=== PATIENT | female | born 1955 | race Caucasian/White ===

== ENCOUNTER 2017-07-09 21:59 | Inpatient (IN) | payer BC ==
[2017-07-09] MEDS ORDERED: Sodium Chloride 0.9% 1,000 ML IV ONE ×2 (22:24→22:59)
[2017-07-09] MEDS ORDERED: Sodium Chloride 0.9% 10 ML Syringe FLUSH PRN (22:24)
[2017-07-09] MEDS ORDERED: Sodium Chloride 0.9% 2.5 ML Syringe FLUSH PRN (22:24)
[2017-07-09] MEDS ORDERED: Ondansetron 4 MG/2 ML SDV IVPUSH ONE (22:24)
--- NOTE | 2017-07-09 22:30 | EDM.PDOC ---
ED HPI GENERAL MEDICAL PROBLEM - General Chief Complaint: Diabetic Complaint Stated Complaint: FLU LIKE SYMPTOMS Time Seen by Provider: 07/09/17 22:17 - History of Present Illness INITIAL COMMENTS - FREE TEXT/NARRATIVE: HISTORY AND PHYSICAL: History of present illness: The patient is a 61-year-old female with a history of hypertension hypothyroidism and type 2 diabetes who uses an insulin pump and presents with a with an almost 24 hour history of intractable vomiting and now confusion and altered mental status for the last one hour. said that they had a normal day yesterday and that very much all day she has been vomiting and unable to take sips of water. The vomiting has not been black or bloody. She has not complained of abdominal pain but has complained of a headache and neck pain but no back or flank pain. The patient has insulin pump and the sugars have been elevated today. The patient's tells me that a few years ago she was in DKA and this is similar presentation where she has vomiting and then altered mental status. The patient has no cardiac history that he is aware of and no pulmonary history and denies chest pain or shortness of breath to me in the ER. She denies abdominal pain as well. The patient has not had any trauma or falls per the . Patient has insulin pump on her abdomen. The tells me she has not had diarrhea or urinary complaints and has had no recent fevers chills or upper respiratory infection. Review of systems: As per history of present illness and below otherwise all systems reviewed and negative. Past medical history: As per history of present illness and as reviewed below otherwise noncontributory. Surgical history: As per history of present illness and as reviewed below otherwise noncontributory. Social history: No reported history of drug or alcohol abuse. Family history: As per history of present illness and as reviewed below otherwise noncontributory. Physical exam: General: Well-developed overweight female who is interactive and follows commands but giggles inappropriately and when you ask her to do a command she will continue to do it even though the patellar to stop. There is ketone smell on her breath which is very strong. Rectal temp is 98.8 HEENT: Atraumatic, normocephalic, pupils reactive, negative for conjunctival pallor or scleral icterus, mucous membranes dry, throat clear, neck supple, nontender, trachea midline. Lungs: Clear to auscultation, breath sounds equal bilaterally, chest nontender. No worker breathing stridor or sensory muscle use and no wheezing Heart: S1S2, regular rhythm but tachycardic rate, negative for clicks, rubs, or JVD. Abdomen: Soft, nondistended, nontender. Negative for masses or hepatosplenomegaly. NABS Pelvis: Stable nontender. Genitourinary: Deferred. Rectal: Deferred. Extremities: Atraumatic, negative for cords or calf pain. Neurovascular unremarkable. Full range of motion without defects or deficits Neuro: Awake, alert to person and will follow simple commands but is confused. There is no focality to her exam and she is moving all extremities. There is no facial droop Cranial nerves II through XII unremarkable. . Motor and sensory unremarkable throughout. Exam nonfocal. Skin: Normal turgor no evidence of any rashes or lesions and no diaphoresis Diagnostics: EKG CBC CMP amylase lipase troponin TSH ABG serum ketones UA CT scan of the head chest x-ray Therapeutics: IV O2 monitor IV fluids Zofran insulin subcutaneous and drip, I directed nursing to shut off the patient's own insulin pump sodium bicarbonate 2312: Case was discussed with Dr. Waqar Salgado our hospitalist and he recommends giving an amp of sodium bicarbonate as well as the fluid resuscitation and the insulin drip. He is aware of my concerns about the patient's confusional state she is maintaining her airway and her oxygen saturation and he will come in to see the patient and admit to the ICU. As been at bedside is also aware of this conversation. 2340: Dr. Salgado is here at bedside interpreting the and examining the patient. All labs are back and disposition to the ICU will be facilitated. Patient still is very confused but moving all extremities and not exhibiting any weakness or lateralizing signs. Critical care time excluding procedures:35min Impression: Diabetic ketoacidosis, intractable vomiting, confusional state/altered mental status Definitive disposition and diagnosis as appropriate pending reevaluation and review of above. - Related Data Allergies Allergy/AdvReac Type Severity Reaction Status Date / Time Penicillins Allergy Rash Verified 12/08/15 11:27 Home Meds: Home Meds Hydrochlorothiazide 1 tab PO PCDINNER 12/08/15 [History] Insulin Pump Controller [Snap Insulin Pump Controller] 0 unit SQ ASDIRECTED 09/15 [History] Levothyroxine Sodium [Levo-T] 1 tab PO ACBREAKFAST 12/08/15 [History] Losartan [Cozaar] 1 tab PO BEDTIME 12/08/15 [History] Omeprazole Magnesium [Prilosec Otc] 1 tab PO DAILY 12/08/15 [History] Potassium Bicarbonate/Cit Ac [Effer-K] 1 tab PO DAILY 12/08/15 [History] Past Medical History HEENT History: Reports: None Cardiovascular History: Reports: Hypertension Other Respiratory History: REports 30 yr history of smoking cigarettes, QUIT 2 years ago Gastrointestinal History: Reports: GERD Genitourinary History: Reports: None Musculoskeletal History: Reports: Fracture Other Musculoskeletal History: hx: fracture Right foot & fractured ankle Neurological History: Reports: None Psychiatric History: Reports: None Endocrine/Metabolic History: Reports: Diabetes, Type I, Obesity/BMI 30+ Hematologic History: Reports: None - Past Surgical History HEENT Surgical History: Reports: Oral Surgery Musculoskeletal Surgical History: Reports: Other (See Below) - History Comment History Comment: etoh "3-4x a week" ED ROS GENERAL - Review of Systems Review Of Systems: ROS reveals no pertinent complaints other than HPI. ED EXAM GENERAL NO PERIP PULSE - Physical Exam Exam: See Below (See dictation) Course - Vital Signs Last Recorded V/S: Last Vital Signs Temp 37.2 C 07/09/17 21:59 Pulse 136 H 07/09/17 21:59 Resp 28 H 07/09/17 21:59 BP 140/100 H 07/09/17 21:59 Pulse Ox 96 07/09/17 21:59 - Orders/Labs/Meds Orders: Active Orders 24 hr Category Date Time Status Patient Status [ADT] Stat ADT 07/09/17 23:40 Active Blood Glucose Check, Bedside [RC] ONETIME Care 07/09/17 22:22 Active Cardiac Monitoring [RC] . DIRECTED Care 07/09/17 22:22 Active Communication Order [RC] STAT Care 07/09/17 22:24 Active EKG Documentation Completion [RC] STAT Care 07/09/17 22:22 Active Oxygen Therapy, ED [RC] ASDIRECTED Care 07/09/17 22:22 Active Pulse Oximetry [RC] ASDIRECTED Care 07/09/17 22:22 Active Chest 1V Frontal [CR] Stat Exams 07/09/17 22:24 Taken Head wo Cont [CT] Stat Exams 07/09/17 22:23 Taken UA W/MICROSCOPIC [URIN] Stat Lab 07/09/17 23:10 Ordered Insulin Regular, Human [NovoLIN R] 100 unit Med 07/09/17 23:00 Active Sodium Chloride 0.9% [Normal Saline] 99 ml IV TITRATE Sodium Chloride 0.9% [Normal Saline] 1,000 ml Med 07/09/17 22:59 Active IV STAT Sodium Chloride 0.9% [Saline Flush] Med 07/09/17 22:24 Active 10 ml FLUSH ASDIRECTED PRN Sodium Chloride 0.9% [Saline Flush] Med 07/09/17 22:24 Active 2.5 ml FLUSH ASDIRECTED PRN Saline Lock Insert [OM.PC] Stat Oth 07/09/17 22:22 Ordered Medication Orders Insulin Human Regular 100 unit (/ Sodium Chloride) 100 mls @ 9.97 mls/hr IV TITRATE RAFITA; Protocol Last Admin: 07/09/17 23:28 Dose: 0.1 unit/kg/hr, 9.97 mls/hr Sodium Chloride (Normal Saline) 1,000 mls @ 999 mls/hr IV STAT ONE Stop: 07/09/17 23:59 Sodium Chloride (Saline Flush) 10 ml FLUSH ASDIRECTED PRN PRN Reason: Keep Vein Open Last Admin: 07/09/17 22:47 Dose: 10 ml Sodium Chloride (Saline Flush) 2.5 ml FLUSH ASDIRECTED PRN PRN Reason: Keep Vein Open Last Admin: 07/09/17 22:47 Dose: 2.5 ml Labs: Laboratory Tests 07/09/17 07/09/17 07/09/17 Range/Units 22:21 22:21 22:21 WBC 17.02 H (4.0-11.0) K/uL RBC 4.12 L (4.30-5.90) M/uL Hgb 13.0 (12.0-16.0) g/dL Hct 41.4 (36.0-46.0) % MCV 100.5 H (80.0-98.0) fL MCH 31.6 (27.0-32.0) pg MCHC 31.4 (31.0-37.0) g/dL RDW Std Deviation 52.2 (28.0-62.0) fl RDW Coeff of Farheen 14 (11.0-15.0) % Plt Count 357 (150-400) K/uL MPV 11.80 (7.40-12.00) fL Add Manual Diff YES Neutrophils % (Manual) 82 H (48.0-80.0) % Lymphocytes % (Manual) 8 L (16.0-40.0) % Monocytes % (Manual) 8 (0.0-15.0) % Eosinophils % (Manual) 2 (0.0-7.0) % Nucleated RBC % 0.0 /100WBC Absolute Seg Neuts 14.0 H (1.4-5.7) Lymphocytes # (Manual) 1.4 (0.6-2.4) Monocytes # (Manual) 1.4 H (0.0-0.8) Eosinophils # (Manual) 0.3 (0.0-0.7) Nucleated RBCs # 0 K/uL ABG pH (7.35-7.45) ABG pCO2 (35-45) mmHG ABG pO2 (75-100) mmHG ABG HCO3 (22-26) mEq/L ABG Total CO2 ABG Base Excess (-2.0-2.0) Sodium 129 L (136-145) mmol/L Potassium 4.9 (3.5-5.1) mmol/L Chloride 83 L (98-107) mmol/L Carbon Dioxide 9.4 L (21.0-32.0) mmol/L BUN 41 H (7.0-18.0) mg/dL Creatinine 2.2 H (0.6-1.0) mg/dL Est Cr Clr Drug Dosing TNP Estimated GFR (MDRD) 22.8 ml/min Glucose 822 H* (74-106) mg/dL Calcium 10.5 H (8.5-10.1) mg/dL Total Bilirubin 0.8 (0.2-1.0) mg/dL AST 16 (15-37) IU/L ALT 16 (14-63) IU/L Alkaline Phosphatase 52 (46-116) U/L Troponin I < 0.050 (0.000-0.056) ng/mL Total Protein 7.7 (6.4-8.2) g/dL Albumin 4.0 (3.4-5.0) g/dL Globulin 3.7 H (2.0-3.5) g/dL Albumin/Globulin Ratio 1.1 L (1.3-2.8) Amylase 20 L (25-115) U/L Lipase 140 (73-393) U/L TSH 3rd Generation 0.69 (0.36-3.74) uIU/mL Urine Color Urine Appearance Urine pH (5.0-8.0) Ur Specific Dustin (1.001-1.035) Urine Protein (NEGATIVE) mg/dL Urine Glucose (UA) (NEGATIVE) mg/dL Urine Ketones (NEGATIVE) mg/dL Urine Occult Blood (NEGATIVE) Urine Nitrite (NEGATIVE) Urine Bilirubin (NEGATIVE) Urine Urobilinogen (<2.0) EU/dL Ur Leukocyte Esterase (NEGATIVE) Urine RBC (0-2/HPF) Urine WBC (0-5/HPF) Ur Epithelial Cells (NONE-FEW) Urine Bacteria (NEGATIVE) Ketones SMALL H (NEG) 07/09/17 07/09/17 Range/Units 22:40 23:10 WBC (4.0-11.0) K/uL RBC (4.30-5.90) M/uL Hgb (12.0-16.0) g/dL Hct (36.0-46.0) % MCV (80.0-98.0) fL MCH (27.0-32.0) pg MCHC (31.0-37.0) g/dL RDW Std Deviation (28.0-62.0) fl RDW Coeff of Farheen (11.0-15.0) % Plt Count (150-400) K/uL MPV (7.40-12.00) fL Add Manual Diff Neutrophils % (Manual) (48.0-80.0) % Lymphocytes % (Manual) (16.0-40.0) % Monocytes % (Manual) (0.0-15.0) % Eosinophils % (Manual) (0.0-7.0) % Nucleated RBC % /100WBC Absolute Seg Neuts (1.4-5.7) Lymphocytes # (Manual) (0.6-2.4) Monocytes # (Manual) (0.0-0.8) Eosinophils # (Manual) (0.0-0.7) Nucleated RBCs # K/uL ABG pH 7.100 L* (7.35-7.45) ABG pCO2 22 L (35-45) mmHG ABG pO2 58 L (75-100) mmHG ABG HCO3 7 L (22-26) mEq/L ABG Total CO2 6.8 ABG Base Excess -21.1 L (-2.0-2.0) Sodium (136-145) mmol/L Potassium (3.5-5.1) mmol/L Chloride (98-107) mmol/L Carbon Dioxide (21.0-32.0) mmol/L BUN (7.0-18.0) mg/dL Creatinine (0.6-1.0) mg/dL Est Cr Clr Drug Dosing Estimated GFR (MDRD) ml/min Glucose (74-106) mg/dL Calcium (8.5-10.1) mg/dL Total Bilirubin (0.2-1.0) mg/dL AST (15-37) IU/L ALT (14-63) IU/L Alkaline Phosphatase (46-116) U/L Troponin I (0.000-0.056) ng/mL Total Protein (6.4-8.2) g/dL Albumin (3.4-5.0) g/dL Globulin (2.0-3.5) g/dL Albumin/Globulin Ratio (1.3-2.8) Amylase (25-115) U/L Lipase (73-393) U/L TSH 3rd Generation (0.36-3.74) uIU/mL Urine Color YELLOW Urine Appearance CLEAR Urine pH 5.5 (5.0-8.0) Ur Specific Dustin 1.025 (1.001-1.035) Urine Protein NEGATIVE (NEGATIVE) mg/dL Urine Glucose (UA) >=1000 (NEGATIVE) mg/dL Urine Ketones 40 H (NEGATIVE) mg/dL Urine Occult Blood NEGATIVE (NEGATIVE) Urine Nitrite NEGATIVE (NEGATIVE) Urine Bilirubin NEGATIVE (NEGATIVE) Urine Urobilinogen 0.2 (<2.0) EU/dL Ur Leukocyte Esterase NEGATIVE (NEGATIVE) Urine RBC 0-1 (0-2/HPF) Urine WBC 0-1 (0-5/HPF) Ur Epithelial Cells RARE (NONE-FEW) Urine Bacteria RARE (NEGATIVE) Ketones (NEG) Meds: Medications Generic Name Dose Route Start Last Admin Trade Name Freq PRN Reason Stop Dose Admin Insulin Human Regular 100 unit 100 mls @ 9.97 mls/hr 07/09/17 23:00 07/09/17 23:28 / Sodium Chloride IV 0.1 unit/kg/hr TITRATE RAFITA 9.97 mls/hr Administration Protocol 0.1 UNIT/KG/HR Sodium Chloride 1,000 mls @ 999 mls/hr 07/09/17 22:59 Normal Saline IV 07/09/17 23:59 STAT ONE Sodium Chloride 10 ml 07/09/17 22:24 07/09/17 22:47 Saline Flush FLUSH 10 ml ASDIRECTED PRN Administration Keep Vein Open Sodium Chloride 2.5 ml 07/09/17 22:24 07/09/17 22:47 Saline Flush FLUSH 2.5 ml ASDIRECTED PRN Administration Keep Vein Open Discontinued Medications Generic Name Dose Route Start Last Admin Trade Name Freq PRN Reason Stop Dose Admin Sodium Chloride 1,000 mls @ 999 mls/hr 07/09/17 22:24 07/09/17 22:47 Normal Saline IV 07/09/17 23:24 999 mls/hr STAT ONE Administration Insulin Human Regular 15 unit 07/09/17 22:43 07/09/17 22:52 Novolin R SUBCUT 07/09/17 22:44 15 units ONETIME ONE Administration Protocol Ondansetron HCl 4 mg 07/09/17 22:24 07/09/17 22:47 Zofran IVPUSH 07/09/17 22:25 4 mg ONETIME ONE Administration Sodium Bicarbonate 50 meq 07/09/17 23:16 07/09/17 23:26 Sodium Bicarbonate 8.4% IVPUSH 07/09/17 23:17 50 meq ONETIME ONE Administration Departure - Departure Time of Disposition: 23:43 Disposition: Admitted As Inpatient 67 Condition: Fair Clinical Impression: DKA (diabetic ketoacidosis) Qualifiers: Diabetes mellitus type: type 2 Diabetes mellitus complication detail: without coma Qualified Code(s): E11.10 - Type 2 diabetes mellitus with ketoacidosis without coma - Discharge Information Referrals: PCP,None [Primary Care Provider] - Forms: ED Department Discharge - My Orders Last 24 Hours: My Active Orders 07/09/17 22:22 Blood Glucose Check, Bedside [RC] ONETIME Cardiac Monitoring [RC] . DIRECTED EKG Documentation Completion [RC] STAT Oxygen Therapy, ED [RC] ASDIRECTED Pulse Oximetry [RC] ASDIRECTED Saline Lock Insert [OM.PC] Stat 07/09/17 22:23 Head wo Cont [CT] Stat 07/09/17 22:24 Communication Order [RC] STAT Chest 1V Frontal [CR] Stat Sodium Chloride 0.9% [Saline Flush] 10 ml FLUSH ASDIRECTED PRN Sodium Chloride 0.9% [Saline Flush] 2.5 ml FLUSH ASDIRECTED PRN 07/09/17 22:59 Sodium Chloride 0.9% [Normal Saline] 1,000 ml IV STAT 07/09/17 23:00 Insulin Regular, Human [NovoLIN R] 100 unit Sodium Chloride 0.9% [Normal Saline] 99 ml IV TITRATE 07/09/17 23:10 UA W/MICROSCOPIC [URIN] Stat 07/09/17 23:40 Patient Status [ADT] Stat - Assessment/Plan Last 24 Hours: My Active Orders 07/09/17 22:22 Blood Glucose Check, Bedside [RC] ONETIME Cardiac Monitoring [RC] . DIRECTED EKG Documentation Completion [RC] STAT Oxygen Therapy, ED [RC] ASDIRECTED Pulse Oximetry [RC] ASDIRECTED Saline Lock Insert [OM.PC] Stat 07/09/17 22:23 Head wo Cont [CT] Stat 07/09/17 22:24 Communication Order [RC] STAT Chest 1V Frontal [CR] Stat Sodium Chloride 0.9% [Saline Flush] 10 ml FLUSH ASDIRECTED PRN Sodium Chloride 0.9% [Saline Flush] 2.5 ml FLUSH ASDIRECTED PRN 07/09/17 22:59 Sodium Chloride 0.9% [Normal Saline] 1,000 ml IV STAT 07/09/17 23:00 Insulin Regular, Human [NovoLIN R] 100 unit Sodium Chloride 0.9% [Normal Saline] 99 ml IV TITRATE 07/09/17 23:10 UA W/MICROSCOPIC [URIN] Stat 07/09/17 23:40 Patient Status [ADT] Stat
[2017-07-09] MEDS ORDERED: Insulin Regular, Human 100 Units/ML 10 ML Vial SUBCUT ONE (22:43)
[2017-07-09] MEDS ORDERED: Sodium Bicarbonate 8.4% 50 MEQ/50 ML Syringe IVPUSH ONE (23:16)
[2017-07-09 23:22] LABS: CHLORIDE,CL 83 mmol/L (98-107); SODIUM,NA 129 mmol/L (136-145)
--- NOTE | 2017-07-10 00:21 | PCM.HP ---
H&P History of Present Illness - General Date of Service: 07/09/17 Admit Problem/Dx: Admission Diagnosis/Problem Admission Diagnosis/Problem DKA Source of Information: Family - History of Present Illness Initial Comments - Free Text/Narative: 61 year old female with a PMH of T2DM (insulin dependent), HTN, HLD and hypothyroidism, presented to the ED with altered mental status and elevated glucose. was concerned about DKA. Patient normally lives with her in [place], [place]. They have been staying in [place] for the winter. They were making their standard trip home. However , in the morning they noticed that her glucose was elevated around 600. She had a continental breakfast at the [facility] that morning. However, as the day progressed she started to have nausea and was worried about becoming dehydrated. They continued to use her insulin pump during the day but her glucose remained elevated. They were planning on staying in [place], [place]. She started to become confused which caused her to continue to [place] to be seen in the ED. He expressed concern about DKA. She had similar symptoms about 7-8 years ago and was admitted for DKA. She has done well since that time. She has not had fever or abdominal pain during the day. She did complain of a headache. She was diagnosed with T2DM at age 41. She has been on an insulin pump for several years. She is actually planning on having her pump changed on 07/14/2017, with her PCP. Her believes that her pump is currently functioning well. Information was gathered from her , patient was not able to answer questions appropriately. In the ED, CT head was unremarkable. WBC elevated at 17,020 without obvious infection. UA was negative. Sodium low at 129 with a potassium of 4.9. Her BUN and creatinine were elevated at 41/2.2. Her glucose was high at 822 with an anion gap of 39. Her pH was low at 7.1, pCO2 22 and HCO3 7. She was given an amp of bicarb in the ED. Serum ketones were positive. She was started on an insulin drip. The ED physician recommended admission for DKA. - Related Data Allergies/Adverse Reactions: Allergies Allergy/AdvReac Type Severity Reaction Status Date / Time Penicillins Allergy Rash Verified 12/08/15 11:27 Home Medications: Home Meds Hydrochlorothiazide 1 tab PO PCDINNER 12/08/15 [History] Insulin Pump Controller [Snap Insulin Pump Controller] 0 unit SQ ASDIRECTED 09/15 [History] Levothyroxine Sodium [Levo-T] 1 tab PO ACBREAKFAST 12/08/15 [History] Losartan [Cozaar] 1 tab PO BEDTIME 12/08/15 [History] Omeprazole Magnesium [Prilosec Otc] 1 tab PO DAILY 12/08/15 [History] Potassium Bicarbonate/Cit Ac [Effer-K] 1 tab PO DAILY 12/08/15 [History] Past Medical History Cardiovascular History: Reports: High Cholesterol, Hypertension Other Respiratory History: Reports 30 yr history of smoking cigarettes, QUIT 2015. Gastrointestinal History: Reports: GERD Endocrine/Metabolic History: Reports: Diabetes, Type II, IDDM, Obesity/BMI 30+ - Past Surgical History HEENT Surgical History: Reports: Oral Surgery GI Surgical History: Reports: Appendectomy Other Musculoskeletal Surgeries/Procedures:: Right foot and ankle fracture repair. Social & Family History - Family History Family Medical History: Noncontributory - Tobacco Use Smoking Status *Q: Never Smoker - Alcohol Use Alcohol Use Comment: 3-4 times/week - Recreational Drug Use Recreational Drug Use: No H&P Review of Systems - Review of Systems: Review Of Systems: ROS reveals no pertinent complaints other than HPI. Exam - Exam Exam: See Below - Vital Signs Vital Signs: Last Vital Signs Temp 98.9 F 07/09/17 21:59 Pulse 136 H 07/09/17 21:59 Resp 28 H 07/09/17 21:59 BP 140/100 H 07/09/17 21:59 Pulse Ox 96 07/09/17 21:59 Weight: 99.79 kg - Exam Quality Assessment: Supplemental Oxygen General: Lethargic HEENT: EOMI Neck: Supple Lungs: Clear to Auscultation (with poor effort). No: Crackles, Wheezing Cardiovascular: Regular Rate, Regular Rhythm. No: Systolic Murmur GI/Abdominal Exam: Normal Bowel Sounds, Soft, Non-Tender, No Distention Extremities: No Pedal Edema Neuro Extensive - Mental Status: Disorientation to Place, Disorientation to Time , Inattentive (poor response to questions) - Patient Data Lab Results Last 24 hrs: Laboratory Results - last 24 hr 07/09/17 07/09/17 07/09/17 Range/Units 22:21 22:21 22:21 WBC 17.02 H (4.0-11.0) K/uL RBC 4.12 L (4.30-5.90) M/uL Hgb 13.0 (12.0-16.0) g/dL Hct 41.4 (36.0-46.0) % MCV 100.5 H (80.0-98.0) fL MCH 31.6 (27.0-32.0) pg MCHC 31.4 (31.0-37.0) g/dL RDW Std Deviation 52.2 (28.0-62.0) fl RDW Coeff of Farheen 14 (11.0-15.0) % Plt Count 357 (150-400) K/uL MPV 11.80 (7.40-12.00) fL Add Manual Diff YES Neutrophils % (Manual) 82 H (48.0-80.0) % Lymphocytes % (Manual) 8 L (16.0-40.0) % Monocytes % (Manual) 8 (0.0-15.0) % Eosinophils % (Manual) 2 (0.0-7.0) % Nucleated RBC % 0.0 /100WBC Absolute Seg Neuts 14.0 H (1.4-5.7) Lymphocytes # (Manual) 1.4 (0.6-2.4) Monocytes # (Manual) 1.4 H (0.0-0.8) Eosinophils # (Manual) 0.3 (0.0-0.7) Nucleated RBCs # 0 K/uL ABG pH (7.35-7.45) ABG pCO2 (35-45) mmHG ABG pO2 (75-100) mmHG ABG HCO3 (22-26) mEq/L ABG Total CO2 ABG Base Excess (-2.0-2.0) Sodium 129 L (136-145) mmol/L Potassium 4.9 (3.5-5.1) mmol/L Chloride 83 L (98-107) mmol/L Carbon Dioxide 9.4 L (21.0-32.0) mmol/L BUN 41 H (7.0-18.0) mg/dL Creatinine 2.2 H (0.6-1.0) mg/dL Est Cr Clr Drug Dosing TNP Estimated GFR (MDRD) 22.8 ml/min Glucose 822 H* (74-106) mg/dL Calcium 10.5 H (8.5-10.1) mg/dL Total Bilirubin 0.8 (0.2-1.0) mg/dL AST 16 (15-37) IU/L ALT 16 (14-63) IU/L Alkaline Phosphatase 52 (46-116) U/L Troponin I < 0.050 (0.000-0.056) ng/mL Total Protein 7.7 (6.4-8.2) g/dL Albumin 4.0 (3.4-5.0) g/dL Globulin 3.7 H (2.0-3.5) g/dL Albumin/Globulin Ratio 1.1 L (1.3-2.8) Amylase 20 L (25-115) U/L Lipase 140 (73-393) U/L TSH 3rd Generation 0.69 (0.36-3.74) uIU/mL Urine Color Urine Appearance Urine pH (5.0-8.0) Ur Specific Morgan (1.001-1.035) Urine Protein (NEGATIVE) mg/dL Urine Glucose (UA) (NEGATIVE) mg/dL Urine Ketones (NEGATIVE) mg/dL Urine Occult Blood (NEGATIVE) Urine Nitrite (NEGATIVE) Urine Bilirubin (NEGATIVE) Urine Urobilinogen (<2.0) EU/dL Ur Leukocyte Esterase (NEGATIVE) Urine RBC (0-2/HPF) Urine WBC (0-5/HPF) Ur Epithelial Cells (NONE-FEW) Urine Bacteria (NEGATIVE) Ketones SMALL H (NEG) 07/09/17 07/09/17 Range/Units 22:40 23:10 WBC (4.0-11.0) K/uL RBC (4.30-5.90) M/uL Hgb (12.0-16.0) g/dL Hct (36.0-46.0) % MCV (80.0-98.0) fL MCH (27.0-32.0) pg MCHC (31.0-37.0) g/dL RDW Std Deviation (28.0-62.0) fl RDW Coeff of Farheen (11.0-15.0) % Plt Count (150-400) K/uL MPV (7.40-12.00) fL Add Manual Diff Neutrophils % (Manual) (48.0-80.0) % Lymphocytes % (Manual) (16.0-40.0) % Monocytes % (Manual) (0.0-15.0) % Eosinophils % (Manual) (0.0-7.0) % Nucleated RBC % /100WBC Absolute Seg Neuts (1.4-5.7) Lymphocytes # (Manual) (0.6-2.4) Monocytes # (Manual) (0.0-0.8) Eosinophils # (Manual) (0.0-0.7) Nucleated RBCs # K/uL ABG pH 7.100 L* (7.35-7.45) ABG pCO2 22 L (35-45) mmHG ABG pO2 58 L (75-100) mmHG ABG HCO3 7 L (22-26) mEq/L ABG Total CO2 6.8 ABG Base Excess -21.1 L (-2.0-2.0) Sodium (136-145) mmol/L Potassium (3.5-5.1) mmol/L Chloride (98-107) mmol/L Carbon Dioxide (21.0-32.0) mmol/L BUN (7.0-18.0) mg/dL Creatinine (0.6-1.0) mg/dL Est Cr Clr Drug Dosing Estimated GFR (MDRD) ml/min Glucose (74-106) mg/dL Calcium (8.5-10.1) mg/dL Total Bilirubin (0.2-1.0) mg/dL AST (15-37) IU/L ALT (14-63) IU/L Alkaline Phosphatase (46-116) U/L Troponin I (0.000-0.056) ng/mL Total Protein (6.4-8.2) g/dL Albumin (3.4-5.0) g/dL Globulin (2.0-3.5) g/dL Albumin/Globulin Ratio (1.3-2.8) Amylase (25-115) U/L Lipase (73-393) U/L TSH 3rd Generation (0.36-3.74) uIU/mL Urine Color YELLOW Urine Appearance CLEAR Urine pH 5.5 (5.0-8.0) Ur Specific Morgan 1.025 (1.001-1.035) Urine Protein NEGATIVE (NEGATIVE) mg/dL Urine Glucose (UA) >=1000 (NEGATIVE) mg/dL Urine Ketones 40 H (NEGATIVE) mg/dL Urine Occult Blood NEGATIVE (NEGATIVE) Urine Nitrite NEGATIVE (NEGATIVE) Urine Bilirubin NEGATIVE (NEGATIVE) Urine Urobilinogen 0.2 (<2.0) EU/dL Ur Leukocyte Esterase NEGATIVE (NEGATIVE) Urine RBC 0-1 (0-2/HPF) Urine WBC 0-1 (0-5/HPF) Ur Epithelial Cells RARE (NONE-FEW) Urine Bacteria RARE (NEGATIVE) Ketones (NEG) Result Diagrams: 07/09/17 22:21 07/09/17 22:21 - Problem List (1) DKA (diabetic ketoacidosis) SNOMED Code(s): 714993121, 937568908 ICD Code: E13.10 - OTH DIABETES MELLITUS WITH KETOACIDOSIS WITHOUT COMA Status: Acute Current Visit: Yes Qualifiers: Diabetes mellitus type: type 2 Diabetes mellitus complication detail: without coma Qualified Code(s): E11.10 - Type 2 diabetes mellitus with ketoacidosis without coma (2) ARF (acute renal failure) SNOMED Code(s): 17837045 ICD Code: N17.9 - ACUTE KIDNEY FAILURE, UNSPECIFIED Status: Acute Current Visit: Yes (3) Encephalopathy, metabolic SNOMED Code(s): 27027458 ICD Code: G93.41 - METABOLIC ENCEPHALOPATHY Status: Acute Current Visit: Yes Problem List Initiated/Reviewed/Updated: Yes Orders Last 24hrs: Active Orders 24 hr Category Date Time Status Patient Status [ADT] Stat ADT 07/09/17 23:40 Active Pulse Oximetry [RC] ASDIRECTED Care 07/09/17 22:22 Active Chest 1V Frontal [CR] Stat Exams 07/09/17 22:24 Taken Head wo Cont [CT] Stat Exams 07/09/17 22:23 Taken UA W/MICROSCOPIC [URIN] Stat Lab 07/09/17 23:10 Ordered Insulin Regular, Human [NovoLIN R] 100 unit Med 07/09/17 23:00 Active Sodium Chloride 0.9% [Normal Saline] 99 ml IV TITRATE Sodium Chloride 0.9% [Saline Flush] Med 07/09/17 22:24 Active 10 ml FLUSH ASDIRECTED PRN Sodium Chloride 0.9% [Saline Flush] Med 07/09/17 22:24 Active 2.5 ml FLUSH ASDIRECTED PRN Saline Lock Insert [OM.PC] Stat Oth 07/09/17 22:22 Ordered Medication Orders Insulin Human Regular 100 unit (/ Sodium Chloride) 100 mls @ 9.97 mls/hr IV TITRATE RAFITA; Protocol Last Admin: 07/09/17 23:28 Dose: 0.1 unit/kg/hr, 9.97 mls/hr Sodium Chloride (Saline Flush) 10 ml FLUSH ASDIRECTED PRN PRN Reason: Keep Vein Open Last Admin: 07/09/17 22:47 Dose: 10 ml Sodium Chloride (Saline Flush) 2.5 ml FLUSH ASDIRECTED PRN PRN Reason: Keep Vein Open Last Admin: 07/09/17 22:47 Dose: 2.5 ml Assessment/Plan Comment:: 1. DKA: Patient does not show any signs of infection. She normally uses an insulin pump and her believes that it is functioning properly. However , she has been using the pump all day and her glucose remains elevated. I suspect that the pump may be malfunctioning. She is set to get a new pump on 07/14/2017. - Insulin drip - IVF, NPO - Close monitoring of BMP and glucose - Consult to e-ICU 2. ARF: No reported history of chronic kidney disease. Likely prerenal. - IVF and monitor 3. Encephalopathy, metabolic: Secondary to DKA. - Monitor
[2017-07-10] MEDS ORDERED: Ondansetron 4 MG/2 ML SDV IVPUSH PRN (00:39)
[2017-07-10] MEDS ORDERED: Acetaminophen 325 MG Tab PO PRN (00:39)
[2017-07-10] MEDS ORDERED: Sodium Chloride 0.9% 1,000 ML IV SCH (00:45)
[2017-07-10] MEDS: Heparin Sodium 5,000 Units/ML Vial SUBCUT SCH ×3 (01:45→16:26)
[2017-07-10] MEDS ORDERED: Pantoprazole 40 MG Vial IVPUSH ONE (02:30)
[2017-07-10] MEDS: Sodium Chloride 0.9% with KCl 1,000 ML IV SCH ×2 (04:18→09:21)
--- NOTE | 2017-07-10 10:09 | PCM.PN ---
- General Info Date of Service: 07/10/17 Subjective Update: Patient is awake and oriented and doing much better now. She is tolerating ice chips and drinking fluids. Functional Status: Reports: Pain Controlled - Review of Systems General: Reports: No Symptoms HEENT: Reports: No Symptoms Pulmonary: Reports: No Symptoms Cardiovascular: Reports: No Symptoms Gastrointestinal: Reports: No Symptoms Genitourinary: Reports: No Symptoms Musculoskeletal: Reports: No Symptoms Skin: Reports: No Symptoms Neurological: Reports: No Symptoms Psychiatric: Reports: No Symptoms - Patient Data Vitals - Most Recent: Last Vital Signs Temp 36.7 C 07/10/17 08:00 Pulse 132 H 07/09/17 23:58 Resp 14 07/10/17 09:00 BP 112/60 07/10/17 09:00 Pulse Ox 98 07/10/17 09:00 Weight - Most Recent: 99.79 kg I&O - Last 24 Hours: Intake & Output 07/09/17 07/10/17 07/10/17 22:59 06:59 14:59 Intake Total 2690 1240 Balance 2690 1240 Lab Results Last 24 Hours: Laboratory Results - last 24 hr 07/09/17 07/09/17 07/09/17 Range/Units 22:21 22:21 22:21 WBC 17.02 H (4.0-11.0) K/uL RBC 4.12 L (4.30-5.90) M/uL Hgb 13.0 (12.0-16.0) g/dL Hct 41.4 (36.0-46.0) % MCV 100.5 H (80.0-98.0) fL MCH 31.6 (27.0-32.0) pg MCHC 31.4 (31.0-37.0) g/dL RDW Std Deviation 52.2 (28.0-62.0) fl RDW Coeff of [place] 14 (11.0-15.0) % Plt Count 357 (150-400) K/uL MPV 11.80 (7.40-12.00) fL Add Manual Diff YES Neutrophils % (Manual) 82 H (48.0-80.0) % Lymphocytes % (Manual) 8 L (16.0-40.0) % Monocytes % (Manual) 8 (0.0-15.0) % Eosinophils % (Manual) 2 (0.0-7.0) % Nucleated RBC % 0.0 /100WBC Absolute Seg Neuts 14.0 H (1.4-5.7) Lymphocytes # (Manual) 1.4 (0.6-2.4) Monocytes # (Manual) 1.4 H (0.0-0.8) Eosinophils # (Manual) 0.3 (0.0-0.7) Nucleated RBCs # 0 K/uL ABG pH (7.35-7.45) ABG pCO2 (35-45) mmHG ABG pO2 (75-100) mmHG ABG HCO3 (22-26) mEq/L ABG Total CO2 ABG Base Excess (-2.0-2.0) Lactate (0.20-2.00) mmol/L Sodium 129 L (136-145) mmol/L Potassium 4.9 (3.5-5.1) mmol/L Chloride 83 L (98-107) mmol/L Carbon Dioxide 9.4 L (21.0-32.0) mmol/L BUN 41 H (7.0-18.0) mg/dL Creatinine 2.2 H (0.6-1.0) mg/dL Est Cr Clr Drug Dosing TNP Estimated GFR (MDRD) 22.8 ml/min Glucose 822 H* (74-106) mg/dL POC Glucose (60-110) mg/dL Calcium 10.5 H (8.5-10.1) mg/dL Total Bilirubin 0.8 (0.2-1.0) mg/dL AST 16 (15-37) IU/L ALT 16 (14-63) IU/L Alkaline Phosphatase 52 (46-116) U/L Troponin I < 0.050 (0.000-0.056) ng/mL Total Protein 7.7 (6.4-8.2) g/dL Albumin 4.0 (3.4-5.0) g/dL Globulin 3.7 H (2.0-3.5) g/dL Albumin/Globulin Ratio 1.1 L (1.3-2.8) Amylase 20 L (25-115) U/L Lipase 140 (73-393) U/L TSH 3rd Generation 0.69 (0.36-3.74) uIU/mL Urine Color Urine Appearance Urine pH (5.0-8.0) Ur Specific [place] (1.001-1.035) Urine Protein (NEGATIVE) mg/dL Urine Glucose (UA) (NEGATIVE) mg/dL Urine Ketones (NEGATIVE) mg/dL Urine Occult Blood (NEGATIVE) Urine Nitrite (NEGATIVE) Urine Bilirubin (NEGATIVE) Urine Urobilinogen (<2.0) EU/dL Ur Leukocyte Esterase (NEGATIVE) Urine RBC (0-2/HPF) Urine WBC (0-5/HPF) Ur Epithelial Cells (NONE-FEW) Urine Bacteria (NEGATIVE) Ketones SMALL H (NEG) 07/09/17 07/09/17 07/09/17 Range/Units 22:25 22:40 23:10 WBC (4.0-11.0) K/uL RBC (4.30-5.90) M/uL Hgb (12.0-16.0) g/dL Hct (36.0-46.0) % MCV (80.0-98.0) fL MCH (27.0-32.0) pg MCHC (31.0-37.0) g/dL RDW Std Deviation (28.0-62.0) fl RDW Coeff of [place] (11.0-15.0) % Plt Count (150-400) K/uL MPV (7.40-12.00) fL Add Manual Diff Neutrophils % (Manual) (48.0-80.0) % Lymphocytes % (Manual) (16.0-40.0) % Monocytes % (Manual) (0.0-15.0) % Eosinophils % (Manual) (0.0-7.0) % Nucleated RBC % /100WBC Absolute Seg Neuts (1.4-5.7) Lymphocytes # (Manual) (0.6-2.4) Monocytes # (Manual) (0.0-0.8) Eosinophils # (Manual) (0.0-0.7) Nucleated RBCs # K/uL ABG pH 7.100 L* (7.35-7.45) ABG pCO2 22 L (35-45) mmHG ABG pO2 58 L (75-100) mmHG ABG HCO3 7 L (22-26) mEq/L ABG Total CO2 6.8 ABG Base Excess -21.1 L (-2.0-2.0) Lactate 9.2 H (0.20-2.00) mmol/L Sodium (136-145) mmol/L Potassium (3.5-5.1) mmol/L Chloride (98-107) mmol/L Carbon Dioxide (21.0-32.0) mmol/L BUN (7.0-18.0) mg/dL Creatinine (0.6-1.0) mg/dL Est Cr Clr Drug Dosing Estimated GFR (MDRD) ml/min Glucose (74-106) mg/dL POC Glucose (60-110) mg/dL Calcium (8.5-10.1) mg/dL Total Bilirubin (0.2-1.0) mg/dL AST (15-37) IU/L ALT (14-63) IU/L Alkaline Phosphatase (46-116) U/L Troponin I (0.000-0.056) ng/mL Total Protein (6.4-8.2) g/dL Albumin (3.4-5.0) g/dL Globulin (2.0-3.5) g/dL Albumin/Globulin Ratio (1.3-2.8) Amylase (25-115) U/L Lipase (73-393) U/L TSH 3rd Generation (0.36-3.74) uIU/mL Urine Color YELLOW Urine Appearance CLEAR Urine pH 5.5 (5.0-8.0) Ur Specific [place] 1.025 (1.001-1.035) Urine Protein NEGATIVE (NEGATIVE) mg/dL Urine Glucose (UA) >=1000 (NEGATIVE) mg/dL Urine Ketones 40 H (NEGATIVE) mg/dL Urine Occult Blood NEGATIVE (NEGATIVE) Urine Nitrite NEGATIVE (NEGATIVE) Urine Bilirubin NEGATIVE (NEGATIVE) Urine Urobilinogen 0.2 (<2.0) EU/dL Ur Leukocyte Esterase NEGATIVE (NEGATIVE) Urine RBC 0-1 (0-2/HPF) Urine WBC 0-1 (0-5/HPF) Ur Epithelial Cells RARE (NONE-FEW) Urine Bacteria RARE (NEGATIVE) Ketones (NEG) 07/10/17 07/10/17 07/10/17 Range/Units 00:39 01:15 02:00 WBC (4.0-11.0) K/uL RBC (4.30-5.90) M/uL Hgb (12.0-16.0) g/dL Hct (36.0-46.0) % MCV (80.0-98.0) fL MCH (27.0-32.0) pg MCHC (31.0-37.0) g/dL RDW Std Deviation (28.0-62.0) fl RDW Coeff of [place] (11.0-15.0) % Plt Count (150-400) K/uL MPV (7.40-12.00) fL Add Manual Diff Neutrophils % (Manual) (48.0-80.0) % Lymphocytes % (Manual) (16.0-40.0) % Monocytes % (Manual) (0.0-15.0) % Eosinophils % (Manual) (0.0-7.0) % Nucleated RBC % /100WBC Absolute Seg Neuts (1.4-5.7) Lymphocytes # (Manual) (0.6-2.4) Monocytes # (Manual) (0.0-0.8) Eosinophils # (Manual) (0.0-0.7) Nucleated RBCs # K/uL ABG pH (7.35-7.45) ABG pCO2 (35-45) mmHG ABG pO2 (75-100) mmHG ABG HCO3 (22-26) mEq/L ABG Total CO2 ABG Base Excess (-2.0-2.0) Lactate (0.20-2.00) mmol/L Sodium 135 L (136-145) mmol/L Potassium 3.6 (3.5-5.1) mmol/L Chloride 93 L (98-107) mmol/L Carbon Dioxide 12.6 L (21.0-32.0) mmol/L BUN 40 H (7.0-18.0) mg/dL Creatinine 2.3 H (0.6-1.0) mg/dL Est Cr Clr Drug Dosing 25.29 Estimated GFR (MDRD) 21.6 ml/min Glucose 640 H* (74-106) mg/dL POC Glucose > 500 H 480 H (60-110) mg/dL Calcium 8.6 (8.5-10.1) mg/dL Total Bilirubin (0.2-1.0) mg/dL AST (15-37) IU/L ALT (14-63) IU/L Alkaline Phosphatase (46-116) U/L Troponin I (0.000-0.056) ng/mL Total Protein (6.4-8.2) g/dL Albumin (3.4-5.0) g/dL Globulin (2.0-3.5) g/dL Albumin/Globulin Ratio (1.3-2.8) Amylase (25-115) U/L Lipase (73-393) U/L TSH 3rd Generation (0.36-3.74) uIU/mL Urine Color Urine Appearance Urine pH (5.0-8.0) Ur Specific [place] (1.001-1.035) Urine Protein (NEGATIVE) mg/dL Urine Glucose (UA) (NEGATIVE) mg/dL Urine Ketones (NEGATIVE) mg/dL Urine Occult Blood (NEGATIVE) Urine Nitrite (NEGATIVE) Urine Bilirubin (NEGATIVE) Urine Urobilinogen (<2.0) EU/dL Ur Leukocyte Esterase (NEGATIVE) Urine RBC (0-2/HPF) Urine WBC (0-5/HPF) Ur Epithelial Cells (NONE-FEW) Urine Bacteria (NEGATIVE) Ketones (NEG) 07/10/17 07/10/17 07/10/17 Range/Units 02:59 03:00 03:00 WBC (4.0-11.0) K/uL RBC (4.30-5.90) M/uL Hgb (12.0-16.0) g/dL Hct (36.0-46.0) % MCV (80.0-98.0) fL MCH (27.0-32.0) pg MCHC (31.0-37.0) g/dL RDW Std Deviation (28.0-62.0) fl RDW Coeff of [place] (11.0-15.0) % Plt Count (150-400) K/uL MPV (7.40-12.00) fL Add Manual Diff Neutrophils % (Manual) (48.0-80.0) % Lymphocytes % (Manual) (16.0-40.0) % Monocytes % (Manual) (0.0-15.0) % Eosinophils % (Manual) (0.0-7.0) % Nucleated RBC % /100WBC Absolute Seg Neuts (1.4-5.7) Lymphocytes # (Manual) (0.6-2.4) Monocytes # (Manual) (0.0-0.8) Eosinophils # (Manual) (0.0-0.7) Nucleated RBCs # K/uL ABG pH (7.35-7.45) ABG pCO2 (35-45) mmHG ABG pO2 (75-100) mmHG ABG HCO3 (22-26) mEq/L ABG Total CO2 ABG Base Excess (-2.0-2.0) Lactate 3.5 H (0.20-2.00) mmol/L Sodium 135 L (136-145) mmol/L Potassium 3.2 L (3.5-5.1) mmol/L Chloride 95 L (98-107) mmol/L Carbon Dioxide 20.8 L (21.0-32.0) mmol/L BUN 40 H (7.0-18.0) mg/dL Creatinine 2.1 H (0.6-1.0) mg/dL Est Cr Clr Drug Dosing 27.70 Estimated GFR (MDRD) 24.0 ml/min Glucose 505 H* (74-106) mg/dL POC Glucose 400 H (60-110) mg/dL Calcium 8.7 (8.5-10.1) mg/dL Total Bilirubin (0.2-1.0) mg/dL AST (15-37) IU/L ALT (14-63) IU/L Alkaline Phosphatase (46-116) U/L Troponin I (0.000-0.056) ng/mL Total Protein (6.4-8.2) g/dL Albumin (3.4-5.0) g/dL Globulin (2.0-3.5) g/dL Albumin/Globulin Ratio (1.3-2.8) Amylase (25-115) U/L Lipase (73-393) U/L TSH 3rd Generation (0.36-3.74) uIU/mL Urine Color Urine Appearance Urine pH (5.0-8.0) Ur Specific [place] (1.001-1.035) Urine Protein (NEGATIVE) mg/dL Urine Glucose (UA) (NEGATIVE) mg/dL Urine Ketones (NEGATIVE) mg/dL Urine Occult Blood (NEGATIVE) Urine Nitrite (NEGATIVE) Urine Bilirubin (NEGATIVE) Urine Urobilinogen (<2.0) EU/dL Ur Leukocyte Esterase (NEGATIVE) Urine RBC (0-2/HPF) Urine WBC (0-5/HPF) Ur Epithelial Cells (NONE-FEW) Urine Bacteria (NEGATIVE) Ketones (NEG) 07/10/17 07/10/17 07/10/17 Range/Units 04:03 04:57 05:00 WBC (4.0-11.0) K/uL RBC (4.30-5.90) M/uL Hgb (12.0-16.0) g/dL Hct (36.0-46.0) % MCV (80.0-98.0) fL MCH (27.0-32.0) pg MCHC (31.0-37.0) g/dL RDW Std Deviation (28.0-62.0) fl RDW Coeff of [place] (11.0-15.0) % Plt Count (150-400) K/uL MPV (7.40-12.00) fL Add Manual Diff Neutrophils % (Manual) (48.0-80.0) % Lymphocytes % (Manual) (16.0-40.0) % Monocytes % (Manual) (0.0-15.0) % Eosinophils % (Manual) (0.0-7.0) % Nucleated RBC % /100WBC Absolute Seg Neuts (1.4-5.7) Lymphocytes # (Manual) (0.6-2.4) Monocytes # (Manual) (0.0-0.8) Eosinophils # (Manual) (0.0-0.7) Nucleated RBCs # K/uL ABG pH (7.35-7.45) ABG pCO2 (35-45) mmHG ABG pO2 (75-100) mmHG ABG HCO3 (22-26) mEq/L ABG Total CO2 ABG Base Excess (-2.0-2.0) Lactate (0.20-2.00) mmol/L Sodium 136 (136-145) mmol/L Potassium 3.3 L (3.5-5.1) mmol/L Chloride 98 (98-107) mmol/L Carbon Dioxide 24.9 (21.0-32.0) mmol/L BUN 38 H (7.0-18.0) mg/dL Creatinine 2.0 H (0.6-1.0) mg/dL Est Cr Clr Drug Dosing 29.09 Estimated GFR (MDRD) 25.4 ml/min Glucose 353 H (74-106) mg/dL POC Glucose 334 H 298 H (60-110) mg/dL Calcium 8.7 (8.5-10.1) mg/dL Total Bilirubin (0.2-1.0) mg/dL AST (15-37) IU/L ALT (14-63) IU/L Alkaline Phosphatase (46-116) U/L Troponin I (0.000-0.056) ng/mL Total Protein (6.4-8.2) g/dL Albumin (3.4-5.0) g/dL Globulin (2.0-3.5) g/dL Albumin/Globulin Ratio (1.3-2.8) Amylase (25-115) U/L Lipase (73-393) U/L TSH 3rd Generation (0.36-3.74) uIU/mL Urine Color Urine Appearance Urine pH (5.0-8.0) Ur Specific [place] (1.001-1.035) Urine Protein (NEGATIVE) mg/dL Urine Glucose (UA) (NEGATIVE) mg/dL Urine Ketones (NEGATIVE) mg/dL Urine Occult Blood (NEGATIVE) Urine Nitrite (NEGATIVE) Urine Bilirubin (NEGATIVE) Urine Urobilinogen (<2.0) EU/dL Ur Leukocyte Esterase (NEGATIVE) Urine RBC (0-2/HPF) Urine WBC (0-5/HPF) Ur Epithelial Cells (NONE-FEW) Urine Bacteria (NEGATIVE) Ketones (NEG) 07/10/17 07/10/17 07/10/17 Range/Units 06:03 07:00 07:01 WBC (4.0-11.0) K/uL RBC (4.30-5.90) M/uL Hgb (12.0-16.0) g/dL Hct (36.0-46.0) % MCV (80.0-98.0) fL MCH (27.0-32.0) pg MCHC (31.0-37.0) g/dL RDW Std Deviation (28.0-62.0) fl RDW Coeff of [place] (11.0-15.0) % Plt Count (150-400) K/uL MPV (7.40-12.00) fL Add Manual Diff Neutrophils % (Manual) (48.0-80.0) % Lymphocytes % (Manual) (16.0-40.0) % Monocytes % (Manual) (0.0-15.0) % Eosinophils % (Manual) (0.0-7.0) % Nucleated RBC % /100WBC Absolute Seg Neuts (1.4-5.7) Lymphocytes # (Manual) (0.6-2.4) Monocytes # (Manual) (0.0-0.8) Eosinophils # (Manual) (0.0-0.7) Nucleated RBCs # K/uL ABG pH (7.35-7.45) ABG pCO2 (35-45) mmHG ABG pO2 (75-100) mmHG ABG HCO3 (22-26) mEq/L ABG Total CO2 ABG Base Excess (-2.0-2.0) Lactate (0.20-2.00) mmol/L Sodium 138 (136-145) mmol/L Potassium 3.8 (3.5-5.1) mmol/L Chloride 101 (98-107) mmol/L Carbon Dioxide 28.5 (21.0-32.0) mmol/L BUN 37 H (7.0-18.0) mg/dL Creatinine 1.8 H (0.6-1.0) mg/dL Est Cr Clr Drug Dosing 32.32 Estimated GFR (MDRD) 28.7 ml/min Glucose 239 H (74-106) mg/dL POC Glucose 259 H 215 H (60-110) mg/dL Calcium 8.8 (8.5-10.1) mg/dL Total Bilirubin (0.2-1.0) mg/dL AST (15-37) IU/L ALT (14-63) IU/L Alkaline Phosphatase (46-116) U/L Troponin I (0.000-0.056) ng/mL Total Protein (6.4-8.2) g/dL Albumin (3.4-5.0) g/dL Globulin (2.0-3.5) g/dL Albumin/Globulin Ratio (1.3-2.8) Amylase (25-115) U/L Lipase (73-393) U/L TSH 3rd Generation (0.36-3.74) uIU/mL Urine Color Urine Appearance Urine pH (5.0-8.0) Ur Specific [place] (1.001-1.035) Urine Protein (NEGATIVE) mg/dL Urine Glucose (UA) (NEGATIVE) mg/dL Urine Ketones (NEGATIVE) mg/dL Urine Occult Blood (NEGATIVE) Urine Nitrite (NEGATIVE) Urine Bilirubin (NEGATIVE) Urine Urobilinogen (<2.0) EU/dL Ur Leukocyte Esterase (NEGATIVE) Urine RBC (0-2/HPF) Urine WBC (0-5/HPF) Ur Epithelial Cells (NONE-FEW) Urine Bacteria (NEGATIVE) Ketones (NEG) 07/10/17 07/10/17 07/10/17 Range/Units 08:08 09:06 09:14 WBC (4.0-11.0) K/uL RBC (4.30-5.90) M/uL Hgb (12.0-16.0) g/dL Hct (36.0-46.0) % MCV (80.0-98.0) fL MCH (27.0-32.0) pg MCHC (31.0-37.0) g/dL RDW Std Deviation (28.0-62.0) fl RDW Coeff of [place] (11.0-15.0) % Plt Count (150-400) K/uL MPV (7.40-12.00) fL Add Manual Diff Neutrophils % (Manual) (48.0-80.0) % Lymphocytes % (Manual) (16.0-40.0) % Monocytes % (Manual) (0.0-15.0) % Eosinophils % (Manual) (0.0-7.0) % Nucleated RBC % /100WBC Absolute Seg Neuts (1.4-5.7) Lymphocytes # (Manual) (0.6-2.4) Monocytes # (Manual) (0.0-0.8) Eosinophils # (Manual) (0.0-0.7) Nucleated RBCs # K/uL ABG pH (7.35-7.45) ABG pCO2 (35-45) mmHG ABG pO2 (75-100) mmHG ABG HCO3 (22-26) mEq/L ABG Total CO2 ABG Base Excess (-2.0-2.0) Lactate (0.20-2.00) mmol/L Sodium 139 (136-145) mmol/L Potassium 4.5 (3.5-5.1) mmol/L Chloride 102 (98-107) mmol/L Carbon Dioxide 28.3 (21.0-32.0) mmol/L BUN 36 H (7.0-18.0) mg/dL Creatinine 1.6 H (0.6-1.0) mg/dL Est Cr Clr Drug Dosing 36.36 Estimated GFR (MDRD) 32.9 ml/min Glucose 171 H (74-106) mg/dL POC Glucose 171 H 154 H (60-110) mg/dL Calcium 8.9 (8.5-10.1) mg/dL Total Bilirubin (0.2-1.0) mg/dL AST (15-37) IU/L ALT (14-63) IU/L Alkaline Phosphatase (46-116) U/L Troponin I (0.000-0.056) ng/mL Total Protein (6.4-8.2) g/dL Albumin (3.4-5.0) g/dL Globulin (2.0-3.5) g/dL Albumin/Globulin Ratio (1.3-2.8) Amylase (25-115) U/L Lipase (73-393) U/L TSH 3rd Generation (0.36-3.74) uIU/mL Urine Color Urine Appearance Urine pH (5.0-8.0) Ur Specific [place] (1.001-1.035) Urine Protein (NEGATIVE) mg/dL Urine Glucose (UA) (NEGATIVE) mg/dL Urine Ketones (NEGATIVE) mg/dL Urine Occult Blood (NEGATIVE) Urine Nitrite (NEGATIVE) Urine Bilirubin (NEGATIVE) Urine Urobilinogen (<2.0) EU/dL Ur Leukocyte Esterase (NEGATIVE) Urine RBC (0-2/HPF) Urine WBC (0-5/HPF) Ur Epithelial Cells (NONE-FEW) Urine Bacteria (NEGATIVE) Ketones (NEG) 07/10/17 Range/Units 09:14 WBC (4.0-11.0) K/uL RBC (4.30-5.90) M/uL Hgb (12.0-16.0) g/dL Hct (36.0-46.0) % MCV (80.0-98.0) fL MCH (27.0-32.0) pg MCHC (31.0-37.0) g/dL RDW Std Deviation (28.0-62.0) fl RDW Coeff of [place] (11.0-15.0) % Plt Count (150-400) K/uL MPV (7.40-12.00) fL Add Manual Diff Neutrophils % (Manual) (48.0-80.0) % Lymphocytes % (Manual) (16.0-40.0) % Monocytes % (Manual) (0.0-15.0) % Eosinophils % (Manual) (0.0-7.0) % Nucleated RBC % /100WBC Absolute Seg Neuts (1.4-5.7) Lymphocytes # (Manual) (0.6-2.4) Monocytes # (Manual) (0.0-0.8) Eosinophils # (Manual) (0.0-0.7) Nucleated RBCs # K/uL ABG pH (7.35-7.45) ABG pCO2 (35-45) mmHG ABG pO2 (75-100) mmHG ABG HCO3 (22-26) mEq/L ABG Total CO2 ABG Base Excess (-2.0-2.0) Lactate 1.3 (0.20-2.00) mmol/L Sodium (136-145) mmol/L Potassium (3.5-5.1) mmol/L Chloride (98-107) mmol/L Carbon Dioxide (21.0-32.0) mmol/L BUN (7.0-18.0) mg/dL Creatinine (0.6-1.0) mg/dL Est Cr Clr Drug Dosing Estimated GFR (MDRD) ml/min Glucose (74-106) mg/dL POC Glucose (60-110) mg/dL Calcium (8.5-10.1) mg/dL Total Bilirubin (0.2-1.0) mg/dL AST (15-37) IU/L ALT (14-63) IU/L Alkaline Phosphatase (46-116) U/L Troponin I (0.000-0.056) ng/mL Total Protein (6.4-8.2) g/dL Albumin (3.4-5.0) g/dL Globulin (2.0-3.5) g/dL Albumin/Globulin Ratio (1.3-2.8) Amylase (25-115) U/L Lipase (73-393) U/L TSH 3rd Generation (0.36-3.74) uIU/mL Urine Color Urine Appearance Urine pH (5.0-8.0) Ur Specific [place] (1.001-1.035) Urine Protein (NEGATIVE) mg/dL Urine Glucose (UA) (NEGATIVE) mg/dL Urine Ketones (NEGATIVE) mg/dL Urine Occult Blood (NEGATIVE) Urine Nitrite (NEGATIVE) Urine Bilirubin (NEGATIVE) Urine Urobilinogen (<2.0) EU/dL Ur Leukocyte Esterase (NEGATIVE) Urine RBC (0-2/HPF) Urine WBC (0-5/HPF) Ur Epithelial Cells (NONE-FEW) Urine Bacteria (NEGATIVE) Ketones (NEG) Med Orders - Current: Current Medications Acetaminophen (Tylenol) 650 mg PO Q4H PRN PRN Reason: Pain (Mild 1-3)/fever Heparin Sodium (Porcine) (Heparin Sodium) 5,000 units SUBCUT Q8H [facility] Last Admin: 07/10/17 08:11 Dose: 5,000 units Insulin Human Regular 100 unit (/ Sodium Chloride) 100 mls @ 9.97 mls/hr IV TITRATE RAFITA; Protocol Last Titration: 07/10/17 10:02 Dose: 0.01 unit/kg/hr, 1 mls/hr Potassium Chloride/Sodium Chloride (Normal Saline With 40 Meq Kcl) 1,000 mls @ 200 mls/hr IV ASDIRECTED RAFITA Last Admin: 07/10/17 09:21 Dose: 200 mls/hr Ondansetron HCl (Zofran) 4 mg IVPUSH Q4H PRN PRN Reason: Nausea/Vomiting Pantoprazole Sodium (Protonix Iv) 40 mg IVPUSH Q24H [facility] Sodium Chloride (Saline Flush) 10 ml FLUSH ASDIRECTED PRN PRN Reason: Keep Vein Open Last Admin: 07/09/17 22:47 Dose: 10 ml Sodium Chloride (Saline Flush) 2.5 ml FLUSH ASDIRECTED PRN PRN Reason: Keep Vein Open Last Admin: 07/09/17 22:47 Dose: 2.5 ml Discontinued Medications Sodium Chloride (Normal Saline) 1,000 mls @ 999 mls/hr IV STAT ONE Stop: 07/09/17 23:24 Last Admin: 07/09/17 22:47 Dose: 999 mls/hr Sodium Chloride (Normal Saline) 1,000 mls @ 999 mls/hr IV STAT ONE Stop: 07/09/17 23:59 Last Admin: 07/09/17 23:44 Dose: 999 mls/hr Sodium Chloride (Normal Saline) 1,000 mls @ 200 mls/hr IV ASDIRECTED RAFITA Last Admin: 07/10/17 00:56 Dose: 200 mls/hr Insulin Human Regular (Novolin R) 15 unit SUBCUT ONETIME ONE; Protocol Stop: 07/09/17 22:44 Last Admin: 07/09/17 22:52 Dose: 15 units Ondansetron HCl (Zofran) 4 mg IVPUSH ONETIME ONE Stop: 07/09/17 22:25 Last Admin: 07/09/17 22:47 Dose: 4 mg Pantoprazole Sodium (Protonix Iv) 40 mg IVPUSH ONETIME ONE Stop: 07/10/17 02:31 Last Admin: 07/10/17 02:20 Dose: 40 mg Sodium Bicarbonate (Sodium Bicarbonate 8.4%) 50 meq IVPUSH ONETIME ONE Stop: 07/09/17 23:17 Last Admin: 07/09/17 23:26 Dose: 50 meq - Exam General: Alert, Oriented HEENT: Pupils Equal, Pupils Reactive, EOMI, Mucous Membr. Moist/[place] Neck: Supple Lungs: Clear to Auscultation, Normal Respiratory Effort Cardiovascular: Regular Rate, Regular Rhythm GI/Abdominal Exam: Normal Bowel Sounds, Soft, Non-Tender, No Organomegaly Extremities: Normal Inspection, No Pedal Edema Skin: Warm, Dry, Intact Neurological: No New Focal Deficit Psy/Mental Status: Alert, Normal Affect, Normal Mood - Problem List Review Problem List Initiated/Reviewed/Updated: Yes - My Orders Last 24 Hours: My Active Orders 07/10/17 09:01 Remove Rtavis Catheter [Urinary Catheter Removal] [RC] ONETIME 07/10/17 Lunch Advance Diet Instructions [DIET] - Plan Plan:: #DKA, improving -Patient alert and oriented, asymptomatic, tolerating PO intake -Patient normally on insulin pump which is not available at this time Plan: -DC Insulin drip -DC IV NS with K -start SSI High dose -switch to insulin pump if patients is able to bring it today #KLEBER, improving -start IV NS at 100 ml/hour #Metabolic Encephalopathy, resolved -DC travis -continue to monitor
[2017-07-10] MEDS: Sodium Chloride 0.9% 1,000 ML IV SCH ×2 (11:07→20:55)
[2017-07-10] MEDS: Insulin Aspart 100 Units/ML 3 ML Pen SUBCUT SCH ×2 (11:23→17:20)
[2017-07-10] MEDS ORDERED: Insulin Glargine,Human Rec. Analog 100 Units/ML 3 ML Pen SUBCUT ONE (12:15)
--- NOTE | 2017-07-10 17:43 | CT ---
EXAM DATE: 07/09/17 PATIENT'S AGE: 61 Patient: TONA HARDEN Facility: [place], [place] Site . Site : 1955 Study: CT Head [id number] 10:49:29 PM Ordering Physician: Brien Heath Final Report: INDICATION: STROKE PROTOCOL TECHNIQUE: Noncontrast scans obtained from the foramen magnum through the vertex. COMPARISON: None. FINDINGS: 1. The patient was uncooperative. Considerable motion degrades image quality. 2. No evidence for intracranial hemorrhage or midline shift. No mass or recent infarct is seen. 1 cm CSF density focus at the skull-base on the right, probably a prominent perivascular space versus less likely old lacunar infarct. 3. No fractures are identified. IMPRESSION: No acute intracranial abnormality. Significant image degradation due to patient motion. Findings discussed with Dr. Tesfaye. Dictated by Tam Schrader MD @ 07/09/2017 11:04:56 PM Dictated by: Tam Schrader MD @ 07/09/2017 23:05:02 (Electronic Signature) Report Signed by Proxy. [facility]
--- NOTE | 2017-07-10 17:44 | CR ---
EXAM DATE: 07/09/17 PATIENT'S AGE: 61 Patient: TONA HARDEN Facility: [place], [place] Site . Site : 1955 Study: XRay Chest [id number]/2018 10:51:47 PM Ordering Physician: Brien Heath Final Report: INDICATION: STROKE PROTOCOL TECHNIQUE: AP upright chest film submitted. COMPARISON: None. FINDINGS: Heart size and pulmonary vasculature within normal limits. Lung ceballos are clear. IMPRESSION: No active disease. Dictated by Tam Scharder MD @ 07/09/2017 10:58:33 PM Dictated by: Tam Schrader MD @ 07/09/2017 22:58:46 (Electronic Signature) [facility]. [facility]
[2017-07-10] MEDS: Insulin Glargine,Human Rec. Analog 100 Units/ML 3 ML Pen SUBCUT SCH (20:42)
[2017-07-10] MEDS ORDERED: Pantoprazole 40 MG Vial IVPUSH SCH (21:00)
[2017-07-11] MEDS: Heparin Sodium 5,000 Units/ML Vial SUBCUT SCH ×2 (00:53→09:02)
[2017-07-11] MEDS ORDERED: Losartan 50 MG Tab PO SCH (07:00)
[2017-07-11] MEDS ORDERED: Hydrochlorothiazide 25 MG Tab PO SCH (07:00)
[2017-07-11] MEDS: Sodium Chloride 0.9% 1,000 ML IV SCH (07:05)
[2017-07-11] MEDS: Insulin Glargine,Human Rec. Analog 100 Units/ML 3 ML Pen SUBCUT SCH (07:20)
[2017-07-11] MEDS: Insulin Aspart 100 Units/ML 3 ML Pen SUBCUT SCH (07:21)
--- NOTE | 2017-07-11 09:53 | PCM.DCSUM1 ---
Discharge Summary - Hospital Course Free Text/Narrative:: 61 yo fm with history of DM type 1 on Insulin pump was admitted on 07/09/17 for DKA, KLEBER and Metabolic Encephalopathy. She was using her insulin pump and had normal BG day prior to admission. Morning of admission she developed uncontrolled vomiting and altered mental status which led her to bring her to Ed. At admission her Blood glucose climbed up into 800's. She was started on Insulin Drip. Her vitals and Mental status improved rapidly. Insulin drip was discontinued the following day. Her blood glucose levels again started to rise after discontinuation of the drip therefore she was monitored additional day. today her BG improved and have been stable from 100-200. She will be discharged home on her insulin pump. She has appointment on 07/16/17 already set up to have her pump changed. She was not on Lantus prior to admission but she was discharged home on Lantus 20 units BID temporarily until she has her pump changed. #DKA #Hyperglycemia -resume insulin pump - patient states she does not refill of insulin -prescribed Lantus temporarily until insulin pump is replaced - prescribed 20 units BID which she may decrease to QD if BG levels consistently below 150 -f/u on 07/16/17 to replace pump #KLEBER, improving -Cr 1.1 at discharge -encourage PO fluid hydration -f/u with pcp - Discharge Data Discharge Date: 07/11/17 Discharge Disposition: Home, Self-Care 01 Condition: Good - Patient Instructions Diet: Drink 8-10+ Glasses/Day, Diabetic Diet Activity: As Tolerated, Rest and Relax Today Showering/Bathing: May Shower Notify Provider of: Fever, Increased Pain, Swelling and Redness, Drainage, Nausea and/or Vomiting - Discharge Plan Prescriptions/Med Rec: Insulin Glarg,Human.Rec.Analog [Lantus Solostar] 20 units SUBCUT Q12H #2 pen Pen Needle, Diabetic [Pen Needle] 1 each MC BID 10 Days #20 dis.needle Home Medications: Home Meds Hydrochlorothiazide 25 mg PO PCDINNER 12/08/15 [History] Insulin Pump Controller [Snap Insulin Pump Controller] 0 unit SQ ASDIRECTED 09/15 [History] Levothyroxine Sodium [Levo-T] 1 tab PO ACBREAKFAST 12/08/15 [History] Losartan [Cozaar] 100 mg PO BEDTIME 12/08/15 [History] Omeprazole Magnesium [Prilosec Otc] 1 tab PO DAILY 12/08/15 [History] Potassium Bicarbonate/Cit Ac [Effer-K] 1 tab PO DAILY 12/08/15 [History] Insulin Glarg,Human.Rec.Analog [Lantus Solostar] 20 units SUBCUT Q12H #2 pen 01/18 [Rx] Pen Needle, Diabetic [Pen Needle] 1 each MC BID 10 Days #20 dis.needle 07/11/17 [Rx] Patient Handouts: Diabetic Ketoacidosis Referrals: Grayson Baird MD [Physician] - 07/16/17 8:00 am (You are also scheduled to see the diabetes nurse educator on 07/16/17 at 0830am.) - Discharge Summary/Plan Comment DC Time >30 min.: No - General Info Functional Status: Reports: Pain Controlled, Tolerating Diet, Ambulating, Urinating - Review of Systems General: Reports: No Symptoms HEENT: Reports: No Symptoms Pulmonary: Reports: No Symptoms Cardiovascular: Reports: No Symptoms Gastrointestinal: Reports: No Symptoms Genitourinary: Reports: No Symptoms Musculoskeletal: Reports: No Symptoms Skin: Reports: No Symptoms Neurological: Reports: No Symptoms Psychiatric: Reports: No Symptoms - Patient Data Vitals - Most Recent: Last Vital Signs Temp 36.3 C 07/11/17 09:00 Pulse 97 07/10/17 19:00 Resp 21 H 07/11/17 09:00 BP 157/74 H 07/11/17 09:00 Pulse Ox 94 L 07/11/17 09:00 Weight - Most Recent: 104.8 kg I&O - Last 24 hours: Intake & Output 07/10/17 07/11/17 07/11/17 22:59 06:59 14:59 Intake Total 512 735 5498 Output Total 250 1000 Balance 737 -450 1485 Lab Results - Last 24 hrs: Laboratory Results - last 24 hr 07/10/17 07/10/17 07/10/17 Range/Units 05:00 10:01 11:07 WBC 17.62 H (4.0-11.0) K/uL RBC 3.52 L (4.30-5.90) M/uL Hgb 11.2 L (12.0-16.0) g/dL Hct 32.3 L (36.0-46.0) % MCV 91.8 (80.0-98.0) fL MCH 31.8 (27.0-32.0) pg MCHC 34.7 (31.0-37.0) g/dL RDW Std Deviation 43.7 (28.0-62.0) fl RDW Coeff of [place] 13 (11.0-15.0) % Plt Count 286 (150-400) K/uL MPV 10.90 (7.40-12.00) fL Neut % (Auto) 80.7 H (48.0-80.0) % Lymph % (Auto) 7.9 L (16.0-40.0) % [place] % (Auto) 11.2 (0.0-15.0) % Eos % (Auto) 0.1 (0.0-7.0) % Baso % (Auto) 0.1 (0.0-1.5) % Neut # (Auto) 14.2 H (1.4-5.7) K/uL Lymph # (Auto) 1.4 (0.6-2.4) K/uL [place] # (Auto) 2.0 H (0.0-0.8) K/uL Eos # (Auto) 0.0 (0.0-0.7) K/uL Baso # (Auto) 0.0 (0.0-0.1) K/uL Nucleated RBC % 0.0 /100WBC Nucleated RBCs # 0 K/uL Sodium (136-145) mmol/L Potassium (3.5-5.1) mmol/L Chloride (98-107) mmol/L Carbon Dioxide (21.0-32.0) mmol/L BUN (7.0-18.0) mg/dL Creatinine (0.6-1.0) mg/dL Est Cr Clr Drug Dosing mL/min Estimated GFR (MDRD) ml/min Glucose (74-106) mg/dL POC Glucose 139 H 181 H (60-110) mg/dL Calcium (8.5-10.1) mg/dL 07/10/17 07/10/17 07/10/17 Range/Units 11:15 12:25 13:00 WBC (4.0-11.0) K/uL RBC (4.30-5.90) M/uL Hgb (12.0-16.0) g/dL Hct (36.0-46.0) % MCV (80.0-98.0) fL MCH (27.0-32.0) pg MCHC (31.0-37.0) g/dL RDW Std Deviation (28.0-62.0) fl RDW Coeff of [place] (11.0-15.0) % Plt Count (150-400) K/uL MPV (7.40-12.00) fL Neut % (Auto) (48.0-80.0) % Lymph % (Auto) (16.0-40.0) % [place] % (Auto) (0.0-15.0) % Eos % (Auto) (0.0-7.0) % Baso % (Auto) (0.0-1.5) % Neut # (Auto) (1.4-5.7) K/uL Lymph # (Auto) (0.6-2.4) K/uL [place] # (Auto) (0.0-0.8) K/uL Eos # (Auto) (0.0-0.7) K/uL Baso # (Auto) (0.0-0.1) K/uL Nucleated RBC % /100WBC Nucleated RBCs # K/uL Sodium 141 138 (136-145) mmol/L Potassium 5.5 H 5.7 H (3.5-5.1) mmol/L Chloride 105 104 (98-107) mmol/L Carbon Dioxide 24.7 26.6 (21.0-32.0) mmol/L BUN 35 H 37 H (7.0-18.0) mg/dL Creatinine 1.5 H 1.6 H (0.6-1.0) mg/dL Est Cr Clr Drug Dosing 38.78 36.36 mL/min Estimated GFR (MDRD) 35.4 32.9 ml/min Glucose 206 H 271 H (74-106) mg/dL POC Glucose 208 H (60-110) mg/dL Calcium 8.8 8.8 (8.5-10.1) mg/dL 07/10/17 07/10/17 07/10/17 Range/Units 13:55 15:24 16:31 WBC (4.0-11.0) K/uL RBC (4.30-5.90) M/uL Hgb (12.0-16.0) g/dL Hct (36.0-46.0) % MCV (80.0-98.0) fL MCH (27.0-32.0) pg MCHC (31.0-37.0) g/dL RDW Std Deviation (28.0-62.0) fl RDW Coeff of [place] (11.0-15.0) % Plt Count (150-400) K/uL MPV (7.40-12.00) fL Neut % (Auto) (48.0-80.0) % Lymph % (Auto) (16.0-40.0) % [place] % (Auto) (0.0-15.0) % Eos % (Auto) (0.0-7.0) % Baso % (Auto) (0.0-1.5) % Neut # (Auto) (1.4-5.7) K/uL Lymph # (Auto) (0.6-2.4) K/uL [place] # (Auto) (0.0-0.8) K/uL Eos # (Auto) (0.0-0.7) K/uL Baso # (Auto) (0.0-0.1) K/uL Nucleated RBC % /100WBC Nucleated RBCs # K/uL Sodium 139 (136-145) mmol/L Potassium 4.7 (3.5-5.1) mmol/L Chloride 102 (98-107) mmol/L Carbon Dioxide 27.4 (21.0-32.0) mmol/L BUN 35 H (7.0-18.0) mg/dL Creatinine 1.4 H (0.6-1.0) mg/dL Est Cr Clr Drug Dosing 41.55 mL/min Estimated GFR (MDRD) 38.4 ml/min Glucose 302 H (74-106) mg/dL POC Glucose 226 H 247 H (60-110) mg/dL Calcium 8.6 (8.5-10.1) mg/dL 07/10/17 07/10/17 07/10/17 Range/Units 16:57 17:05 18:04 WBC (4.0-11.0) K/uL RBC (4.30-5.90) M/uL Hgb (12.0-16.0) g/dL Hct (36.0-46.0) % MCV (80.0-98.0) fL MCH (27.0-32.0) pg MCHC (31.0-37.0) g/dL RDW Std Deviation (28.0-62.0) fl RDW Coeff of [place] (11.0-15.0) % Plt Count (150-400) K/uL MPV (7.40-12.00) fL Neut % (Auto) (48.0-80.0) % Lymph % (Auto) (16.0-40.0) % [place] % (Auto) (0.0-15.0) % Eos % (Auto) (0.0-7.0) % Baso % (Auto) (0.0-1.5) % Neut # (Auto) (1.4-5.7) K/uL Lymph # (Auto) (0.6-2.4) K/uL [place] # (Auto) (0.0-0.8) K/uL Eos # (Auto) (0.0-0.7) K/uL Baso # (Auto) (0.0-0.1) K/uL Nucleated RBC % /100WBC Nucleated RBCs # K/uL Sodium 137 (136-145) mmol/L Potassium 4.2 (3.5-5.1) mmol/L Chloride 100 (98-107) mmol/L Carbon Dioxide 25.1 (21.0-32.0) mmol/L BUN 33 H (7.0-18.0) mg/dL Creatinine 1.4 H (0.6-1.0) mg/dL Est Cr Clr Drug Dosing 41.55 mL/min Estimated GFR (MDRD) 38.4 ml/min Glucose 318 H (74-106) mg/dL POC Glucose 272 H 278 H (60-110) mg/dL Calcium 8.6 (8.5-10.1) mg/dL 07/10/17 07/10/17 07/11/17 Range/Units 18:05 20:38 05:05 WBC (4.0-11.0) K/uL RBC (4.30-5.90) M/uL Hgb (12.0-16.0) g/dL Hct (36.0-46.0) % MCV (80.0-98.0) fL MCH (27.0-32.0) pg MCHC (31.0-37.0) g/dL RDW Std Deviation (28.0-62.0) fl RDW Coeff of [place] (11.0-15.0) % Plt Count (150-400) K/uL MPV (7.40-12.00) fL Neut % (Auto) (48.0-80.0) % Lymph % (Auto) (16.0-40.0) % [place] % (Auto) (0.0-15.0) % Eos % (Auto) (0.0-7.0) % Baso % (Auto) (0.0-1.5) % Neut # (Auto) (1.4-5.7) K/uL Lymph # (Auto) (0.6-2.4) K/uL [place] # (Auto) (0.0-0.8) K/uL Eos # (Auto) (0.0-0.7) K/uL Baso # (Auto) (0.0-0.1) K/uL Nucleated RBC % /100WBC Nucleated RBCs # K/uL Sodium 139 (136-145) mmol/L Potassium 4.0 (3.5-5.1) mmol/L Chloride 104 (98-107) mmol/L Carbon Dioxide 31.2 (21.0-32.0) mmol/L BUN 19 H (7.0-18.0) mg/dL Creatinine 1.1 H (0.6-1.0) mg/dL Est Cr Clr Drug Dosing 52.89 mL/min Estimated GFR (MDRD) 50.7 ml/min Glucose 207 H (74-106) mg/dL POC Glucose 259 H 296 H (60-110) mg/dL Calcium 8.8 (8.5-10.1) mg/dL 07/11/17 07/11/17 Range/Units 05:05 06:40 WBC 16.52 H (4.0-11.0) K/uL RBC 3.66 L (4.30-5.90) M/uL Hgb 11.7 L (12.0-16.0) g/dL Hct 34.0 L (36.0-46.0) % MCV 92.9 (80.0-98.0) fL MCH 32.0 (27.0-32.0) pg MCHC 34.4 (31.0-37.0) g/dL RDW Std Deviation 46.6 (28.0-62.0) fl RDW Coeff of [place] 14 (11.0-15.0) % Plt Count 270 (150-400) K/uL MPV 10.90 (7.40-12.00) fL Neut % (Auto) 77.5 (48.0-80.0) % Lymph % (Auto) 15.6 L (16.0-40.0) % [place] % (Auto) 5.9 (0.0-15.0) % Eos % (Auto) 0.8 (0.0-7.0) % Baso % (Auto) 0.2 (0.0-1.5) % Neut # (Auto) 12.8 H (1.4-5.7) K/uL Lymph # (Auto) 2.6 H (0.6-2.4) K/uL [place] # (Auto) 1.0 H (0.0-0.8) K/uL Eos # (Auto) 0.1 (0.0-0.7) K/uL Baso # (Auto) 0.0 (0.0-0.1) K/uL Nucleated RBC % 0.0 /100WBC Nucleated RBCs # 0 K/uL Sodium (136-145) mmol/L Potassium (3.5-5.1) mmol/L Chloride (98-107) mmol/L Carbon Dioxide (21.0-32.0) mmol/L BUN (7.0-18.0) mg/dL Creatinine (0.6-1.0) mg/dL Est Cr Clr Drug Dosing mL/min Estimated GFR (MDRD) ml/min Glucose (74-106) mg/dL POC Glucose 165 H (60-110) mg/dL Calcium (8.5-10.1) mg/dL FATEM[facility] Results - Last 24 hrs: Microbiology 07/10/17 03:12 Aerobic Blood Culture - Preliminary Blood - Venous - Lab Draw NO GROWTH AFTER 1 DAY Anaerobic Blood Culture - Preliminary NO GROWTH AFTER 1 DAY 07/10/17 03:00 Aerobic Blood Culture - Preliminary Blood - Venous NO GROWTH AFTER 1 DAY Anaerobic Blood Culture - Preliminary NO GROWTH AFTER 1 DAY Med Orders - Current: Current Medications Acetaminophen (Tylenol) 650 mg PO Q4H PRN PRN Reason: Pain (Mild 1-3)/fever Heparin Sodium (Porcine) (Heparin Sodium) 5,000 units SUBCUT Q8H [facility] Last Admin: 07/11/17 09:02 Dose: 5,000 units Hydrochlorothiazide (Hydrochlorothiazide) 25 mg PO PCDINNER [facility] Last Admin: 07/11/17 07:19 Dose: 25 mg Sodium Chloride (Normal Saline) 1,000 mls @ 100 mls/hr IV ASDIRECTED [facility] Last Admin: 07/11/17 07:05 Dose: 100 mls/hr Insulin Aspart (Novolog) 0 unit SUBCUT TIDAC [facility]; Protocol Last Admin: 07/11/17 07:21 Dose: 3 units Insulin Glargine (Lantus Solostar) 20 units SUBCUT Q12H [facility] Last Admin: 07/11/17 07:20 Dose: 20 unit Losartan Potassium (Cozaar) 100 mg PO BEDTIME [facility] Last Admin: 07/11/17 07:18 Dose: 100 mg Ondansetron HCl (Zofran) 4 mg IVPUSH Q4H PRN PRN Reason: Nausea/Vomiting Pantoprazole Sodium (Protonix Iv) 40 mg IVPUSH Q24H [facility] Last Admin: 07/10/17 21:04 Dose: 40 mg Sodium Chloride (Saline Flush) 10 ml FLUSH ASDIRECTED PRN PRN Reason: Keep Vein Open Last Admin: 07/09/17 22:47 Dose: 10 ml Sodium Chloride (Saline Flush) 2.5 ml FLUSH ASDIRECTED PRN PRN Reason: Keep Vein Open Last Admin: 07/09/17 22:47 Dose: 2.5 ml Discontinued Medications Sodium Chloride (Normal Saline) 1,000 mls @ 999 mls/hr IV STAT ONE Stop: 07/09/17 23:24 Last Admin: 07/09/17 22:47 Dose: 999 mls/hr Insulin Human Regular 100 unit (/ Sodium Chloride) 100 mls @ 9.97 mls/hr IV TITRATE [facility]; Protocol Last Titration: 07/10/17 10:02 Dose: 0.01 unit/kg/hr, 1 mls/hr Sodium Chloride (Normal Saline) 1,000 mls @ 999 mls/hr IV STAT ONE Stop: 07/09/17 23:59 Last Admin: 07/09/17 23:44 Dose: 999 mls/hr Sodium Chloride (Normal Saline) 1,000 mls @ 200 mls/hr IV ASDIRECTED [facility] Last Admin: 07/10/17 00:56 Dose: 200 mls/hr Potassium Chloride/Sodium Chloride (Normal Saline With 40 Meq Kcl) 1,000 mls @ 200 mls/hr IV ASDIRECTED [facility] Last Admin: 07/10/17 09:21 Dose: 200 mls/hr Insulin Glargine (Lantus Solostar) 20 units SUBCUT ONETIME ONE Stop: 07/10/17 12:16 Last Admin: 07/10/17 12:24 Dose: 20 units Insulin Human Regular (Novolin R) 15 unit SUBCUT ONETIME ONE; Protocol Stop: 07/09/17 22:44 Last Admin: 07/09/17 22:52 Dose: 15 units Ondansetron HCl (Zofran) 4 mg IVPUSH ONETIME ONE Stop: 07/09/17 22:25 Last Admin: 07/09/17 22:47 Dose: 4 mg Pantoprazole Sodium (Protonix Iv) 40 mg IVPUSH ONETIME ONE Stop: 07/10/17 02:31 Last Admin: 07/10/17 02:20 Dose: 40 mg Sodium Bicarbonate (Sodium Bicarbonate 8.4%) 50 meq IVPUSH ONETIME ONE Stop: 07/09/17 23:17 Last Admin: 07/09/17 23:26 Dose: 50 meq - Exam General: Reports: Alert, Oriented HEENT: Reports: Pupils Equal, Pupils Reactive, EOMI, Mucous Membr. Moist/[place] Lungs: Reports: Clear to Auscultation, Normal Respiratory Effort Cardiovascular: Reports: Regular Rate, Regular Rhythm GI/Abdominal Exam: Normal Bowel Sounds, Soft, Non-Tender, No Organomegaly, No Distention Back Exam: Reports: Normal Inspection, Full Range of Motion Extremities: Normal Inspection, Normal Capillary Refill Skin: Reports: Warm, Dry, Intact Neurological: Reports: No New Focal Deficit Psy/Mental Status: Reports: Alert, Normal Affect, Normal Mood
[2017-07-11 10:08] VITALS: BP 162/81
== END 2017-07-11 11:00 | disposition home or self-care (01) | DRG 420 ==
LOC: MW.ED 21:59 → MW.ICU 23:40
PROVIDERS: ADMIT Family Medicine; ATTEND Family Medicine
DX: E11.10 Type 2 diabetes mellitus with ketoacidosis without coma (principal); N17.9 Acute kidney failure, unspecified; G93.41 Metabolic encephalopathy; I10 Essential (primary) hypertension; E78.5 Hyperlipidemia, unspecified; E03.9 Hypothyroidism, unspecified; Z88.0 Allergy status to penicillin; Z79.4 Long term (current) use of insulin; Z79.899 Other long term (current) drug therapy; Z87.891 Personal history of nicotine dependence; K21.9 Gastro-esophageal reflux disease without esophagitis
CPT/HCPCS: 36415; 36600; 70450; 70450-26; 71045; 71045-26; 80048; 80053; 81001; 82009; 82150; 82803; 82962; 83605; 83690; 84443; 84484; 85025; 87040; 93005; 96361; 96365; 96372; 96375; 99285-25; A9270-GY; C9113; J1644; J1815-GY ×2; J2405; J3480; J7030; J7040